=== PATIENT | female | born 1985 | race Caucasian/White ===

== ENCOUNTER 2017-04-07 16:20 | Inpatient (IN) | payer MEDICAID ==
[~2017-04-07] VITALS: Ht 165.1 cm; Wt 74.7 kg
[2017-04-07 16:55] VITALS: Ht 165.1 cm; Wt 74.7 kg
[2017-04-07] MEDS ORDERED: PREN1TAB79 PO (16:55)
[2017-04-07 16:56] VITALS: BP 113/70; PULSE 88; RESP 20
[2017-04-07] MEDS ORDERED: METHYLERGONOVINE 0.2 MG INJ IM PRN ×2 (17:00→21:00)
[2017-04-07] MEDS ORDERED: LACTATED RINGER'S 1,000 ML IV PRN (17:00)
[2017-04-07] MEDS ORDERED: MISOPROSTOL 200 MCG TAB PR PRN ×2 (17:00→21:00)
[2017-04-07] MEDS ORDERED: BUTORPHANOL 2 MG INJ IV PRN ×2 (17:00)
[2017-04-07] MEDS ORDERED: AMPICILLIN 2 GM/NS (PMX) 100 ML IV ONE (17:00)
[2017-04-07] MEDS ORDERED: LIDOCAINE 1% (MPF) 30 ML INJ INJ PRN (17:00)
[2017-04-07] MEDS ORDERED: CARBOPROST 250 MCG INJ IM PRN ×2 (17:00→21:00)
[2017-04-07] MEDS ORDERED: OXYTOCIN 30 UNITS/LR 500 ML IV SCH ×2 (17:00)
[2017-04-07] MEDS ORDERED: OXYTOCIN 30 UNITS/LR 500 ML IV PRN ×2 (17:00→21:00)
--- NOTE | 2017-04-07 17:35 | HP ---
Date/Time of Note Date/Time of Note DATE: 04/07/17 TIME: 17:30 OB - History Hx of Present Free Text/Dictation 31-year-old female 2 para 1 at 38+ weeks gestation admitted complaining of labor pain started at 8:00 AM April 07 Chief Complaint: Labor contractions Last Menstrual Period: Sep 05, 2016 Estimated Due Date: Apr 17, 2017 : 2 Para: 1 Care: Good Care Obstetrical Complications: None Medical Complications: None Past Family/Social History * Past Medical, Surgical, Family and Obstetric Histories reviewed from chart. Blood Type: O+ Rubella: immune RPR/VDRL: Negative GBS Status: Unknown HBsAG: Negative OB Admission Exam Vital Signs Vital Signs Vital Signs Date Time Temp Pulse Resp B/P Pulse Ox O2 Delivery O2 Flow Rate FiO2 04/07/17 16:56 99.3 88 20 113/70 Room Air Physical Exam HEENT: WNL Heart: Rhythm Normal Lungs: Clear, Equal Abdomen: WNL Extremities: Normal Reflexes: Normal Cervical Dilatation: 2cm Effacement: 25% Station: -3 Membranes: Intact Heart Rate: 130's Accelerations: Accelerations Present Decelerations: No Decelerations Varibility: Marked Contractions on Admission: 6-10 Minutes Apart Date/Time Contractions Began: April 07, 2017 at 8:00 AM Frequency of Contractions: Every 5-10 minutes Duration: Over 30 seconds Intensity: Mild OB Assessment/Plan Other Assessment: 38 weeks gestation by unsure dates Labor contractions Plan: Expectant Management Other plan: We will continue to observe Obtain GBS status Obtain estimation of weight BLANCA CARDENAS MD Apr 07, 2017 17:35
[2017-04-07] MEDS: LACTATED RINGER'S 1,000 ML IV SCH (17:36)
[2017-04-07 19:01] LABS: BASOPHILS % 0.2 % (0.0-2.0); EOSINOPHILS # 0.1 10^3/ul (0.0-0.5); EOSINOPHILS % 0.5 % (0.0-7.0); HEMATOCRIT 31.9 % (37.0-47.0); HEMOGLOBIN 10.7 g/dl (12.0-16.0); LYMPHOCYTES # 1.8 10^3/ul (0.8-2.9); LYMPHOCYTES % 19.7 % (15.0-51.0); MEAN CORPUSCULAR HEMOGLOBIN 29.1 pg (29.0-33.0); MEAN CORPUSCULAR HGB CONC 33.5 g/dl (32.0-37.0); MEAN CORPUSCULAR VOLUME 86.7 fl (82.0-101.0); MEAN PLATELET VOLUME 10.1 fl (7.4-10.4); MONOCYTE # 0.6 10^3/ul (0.3-0.9); NEUTROPHIL # 6.6 10^3/ul (1.6-7.5); NEUTROPHILS % 71.9 % (39.0-77.0); PLATELET COUNT 218 10^3/UL (140-415); RED BLOOD COUNT 3.68 10^6/ul (4.20-5.40); WHITE BLOOD COUNT 9.2 10^3/ul (4.8-10.8)
[2017-04-07 19:19] LABS: INR 0.91; PROTIME 12.2 Sec (12.2-14.2)
[2017-04-07 19:20] LABS: PARTIAL THROMBOPLASTIN TIME 27.6 Sec (25.0-35.0)
[2017-04-07 19:31] LABS: BARBITURATES Negative (NEGATIVE); BENZODIAZEPINES Negative (NEGATIVE); CANNABINOIDS Negative (NEGATIVE); COCAINE Negative (NEGATIVE); OPIATES Negative (NEGATIVE)
[2017-04-07] MEDS ORDERED: LACTATED RINGER'S 1,000 ML IV* SCH (20:56)
[2017-04-07] MEDS: OXYTOCIN 30 UNITS/LR 500 ML IV SCH (20:56)
--- NOTE | 2017-04-07 20:56 | LDN ---
Date/Time of Note Date/Time of Note DATE: 04/07/17 TIME: 20:53 Delivery Summary Baby's weight 3100 g / 6 lbs. 13 oz. Weeks of Gestation Term gestation Placenta Delivered: Spontaneously Meconium: none Episiotomy: No Laceration repair: Second-degree laceration repaired with 2-0 Vicryl suture Anesthesia type: Local Estimated blood loss: 200 Sponge & Needle done & correct: Yes All needle counts correct: Yes Any foreign bodies felt in the: No Problems: Delivery Information Sex Infant Sex: female Apgars 1 Minute: 8 5 Minute: 9 Suctioning Nose & mouth suctioned at andriy: Yes Umbilical Cord Umbilical cord with: 3 Vessels Cord presentations: no nuchal cord Cord Blood was obtained: Yes Copies To: CC: BLANCA CARDENAS MD, BAHAREH MD Apr 07, 2017 20:56
[2017-04-07] MEDS ORDERED: ACETAMINOPHEN 325 MG TAB PO PRN ×2 (21:00)
[2017-04-07] MEDS ORDERED: WITCH HAZEL/GLYCERIN PAD PR PRN (21:00)
[2017-04-07] MEDS ORDERED: ONDANSETRON 4 MG INJ IV PRN (21:00)
[2017-04-07] MEDS ORDERED: LANOLIN 7 GM TUBE TOP PRN (21:00)
[2017-04-07] MEDS ORDERED: BENZOCAINE 20% 56 ML SPRAY TOP PRN (21:00)
[2017-04-07] MEDS ORDERED: DIBUCAINE 1% 30 GM OINT PR PRN (21:00)
[2017-04-07] MEDS ORDERED: MAGNESIUM HYDROXIDE 30ML CUP PO PRN (21:00)
[2017-04-07] MEDS: AMPICILLIN 1 GM/NS (PMX) 50 ML IV SCH (21:00)
[2017-04-07] MEDS ORDERED: SENNA/DOCUSATE NA (8.6MG/50MG) TAB PO PRN (21:00)
[2017-04-07] MEDS: IBUPROFEN 600 MG TAB PO PRN (21:07)
[2017-04-07 22:07] LABS: BARBITURATES Negative (NEGATIVE); BENZODIAZEPINES Negative (NEGATIVE); CANNABINOIDS Negative (NEGATIVE); COCAINE Negative (NEGATIVE); OPIATES Negative (NEGATIVE)
[2017-04-07 22:40] VITALS: BP 104/62; PULSE 73; RESP 19
[2017-04-08] MEDS: LACTATED RINGER'S 1,000 ML IV SCH (00:56)
[2017-04-08 01:00] VITALS: BP 101/62; PULSE 73; RESP 18
[2017-04-08] MEDS: AMPICILLIN 1 GM/NS (PMX) 50 ML IV SCH (01:00)
[2017-04-08] MEDS: OXYTOCIN 30 UNITS/LR 500 ML IV SCH (01:12)
[2017-04-08] MEDS ORDERED: ACETAMINOPHEN/CODEINE #3 TAB PO PRN ×2 (02:00→02:30)
[2017-04-08] MEDS: IBUPROFEN 600 MG TAB PO PRN ×3 (02:14→16:38)
[2017-04-08 04:10] VITALS: BP 99/59; PULSE 81; RESP 18
[2017-04-08 08:30] VITALS: BP 92/56; PULSE 69; RESP 16
[2017-04-08 09:00] LABS: BASOPHILS % 0.2 % (0.0-2.0); EOSINOPHILS % 0.4 % (0.0-7.0); LYMPHOCYTES # 1.8 10^3/ul (0.8-2.9); LYMPHOCYTES % 16.4 % (15.0-51.0); MEAN CORPUSCULAR HEMOGLOBIN 28.6 pg (29.0-33.0); MEAN CORPUSCULAR HGB CONC 33.3 g/dl (32.0-37.0); MEAN CORPUSCULAR VOLUME 85.7 fl (82.0-101.0); MEAN PLATELET VOLUME 9.6 fl (7.4-10.4); MONOCYTE # 0.8 10^3/ul (0.3-0.9); MONOCYTES % 7.2 % (0.0-11.0); NEUTROPHILS % 75.1 % (39.0-77.0); PLATELET COUNT 182 10^3/UL (140-415); RED CELL DISTRIBUTION WIDTH 12.9 % (11.5-14.5); WHITE BLOOD COUNT 10.7 10^3/ul (4.8-10.8)
[2017-04-08 12:35] VITALS: BP 102/62; PULSE 69; RESP 16
[2017-04-08 15:40] VITALS: BP 95/57; PULSE 68; RESP 16
[2017-04-08 20:00] VITALS: BP 103/61; PULSE 70; RESP 18
[2017-04-08] MEDS ORDERED: HYDROCODONE/APAP (5/325) TAB PO PRN ×2 (21:41→21:42)
[2017-04-09] MEDS: IBUPROFEN 600 MG TAB PO PRN ×2 (00:01→06:06)
[2017-04-09 04:30] VITALS: BP 95/58; PULSE 66; RESP 18
[2017-04-09 08:45] VITALS: BP 109/56; PULSE 78; RESP 18
--- NOTE | 2017-04-09 10:05 | DS ---
Date/Time of Note Date/Time of Note DATE: 04/09/17 TIME: 10:04 Obstetrical Discharge Record Final Diagnosis Final Diagnosis: Term delivered Vaginal Delivery Obstetrical Delivery: Spontaneous Condition on Discharge Physical Assessment Voiding: Yes Bowel Movement: Yes Breast: Soft, non-tender Fundus: Firm Calf Tenderness: No Patient Condition: Good Copies To: CC: BLANCA CARDENAS MD, BAHAREH MD Apr 09, 2017 10:05
--- NOTE | 2017-04-09 16:12 | PN ---
Date/Time of Note Date/Time of Note Late entry DATE: 04/08/17 Assessment/Plan VTE Prophylaxis VTE Prophylaxis Intervention: ambulation Lines/Catheters IV Catheter Type (from Nrsg): Peripheral IV Assessment/Plan Assessment/Plan Post day 1 Status post vaginal delivery Continue to ambulate Subjective 24 Hr Interval Summary Free Text/Dictation 31-year-old female had vaginal delivery Constitutional: improved, no complaints Eyes: no complaints ENT: no complaints Respiratory: no complaints Cardiovascular: no complaints Gastrointestinal: no complaints Genitourinary: no complaints Musculoskeletal: no complaints Skin: no complaints Neurologic: no complaints Endocrine: no complaints Lymphatic: no complaints Psychological: nl mood/affect, no complaints Immunologic: no complaints Exam/Review of Systems Vital Signs Vitals Vital Signs Date Time Temp Pulse Resp B/P Pulse Ox O2 Delivery O2 Flow Rate FiO2 04/09/17 12:15 Room Air 04/09/17 08:45 98.0 78 18 109/56 Exam Abdomen is soft and fundus is firm Genitourinary - Female: other (Lochia is moderate), uterus (Fundus is firm) Results Result Diagram: 04/08/17 0836 Medications Medications Current Medications Butorphanol Tartrate (Stadol) 1 mg Q2H PRN IV PAIN; Start 04/07/17 at 17:00 Butorphanol Tartrate (Stadol) 2 mg Q2H PRN IV PAIN; Start 04/07/17 at 17:00 Lidocaine (Xylocaine 1% (Mpf)) 30 ml ONCE PRN INJ EPISIOTOMY/TEARING; Start at 17:00 Methylergonovine Maleate (Methergine) 0.2 mg ONCE PRN IM VAGINAL BLEEDING; Start 04/07/17 at 17:00 Carboprost Tromethamine (Hemabate) 250 mcg ONCE PRN IM VAGINAL BLEEDING; Start 04/07/17 at 17:00 Misoprostol (Cytotec) 1,000 mcg ONCE PRN NH VAGINAL BLEEDING; Start 04/07/17 at 17:00 Ondansetron HCl (Zofran Inj) 4 mg Q6H PRN IV NAUSEA AND/OR VOMITING; Start at 21:00 Senna/Docusate Sodium (Senokot-S) 1 tab BID PRN PO CONSTIPATION Last administered on 04/09/17t 09:28; Admin Dose 1 TAB; Start 04/07/17 at 21:00 Magnesium Hydroxide (Milk Of Mag) 30 ml Q12H PRN PO CONSTIPATION; Start at 21:00 Acetaminophen 650 mg 650 mg Q4H PRN PO ELEVATED TEMPERATURE; Start 04/07/17 at 21:00 Oxytocin/Lactated Ringer's 500 ml @ 0 mls/hr ONCE PRN IV For Hemorrhage Management; Start 04/07/17 at 21:00 Methylergonovine Maleate (Methergine) 0.2 mg ONCE PRN IM VAGINAL BLEEDING; Start 04/07/17 at 21:00 Carboprost Tromethamine (Hemabate) 250 mcg ONCE PRN IM VAGINAL BLEEDING; Start 04/07/17 at 21:00 Misoprostol (Cytotec) 1,000 mcg ONCE PRN [place] VAGINAL BLEEDING; Start 04/07/17 at 21:00 Ibuprofen (Motrin) 600 mg Q6H PRN PO PAIN Last administered on 04/09/17t 06:06 ; Admin Dose 600 MG; Start 04/07/17 at 21:00 Acetaminophen/ Hydrocodone Bitart ([place] (5/325)) 1 tab Q4H PRN PO - PRN PAIN LEVEL 1-5; Start 04/08/17 at 21:41 Acetaminophen/ Hydrocodone Bitart ([place] (5/325)) 2 tab Q4H PRN PO - PRN PAIN LEVEL 6-10; Start 04/08/17 at 21:42 BLANCA CARDENAS MD Apr 09, 2017 16:12
== END 2017-04-09 15:45 | disposition home or self-care (01) | DRG 775 ==
LOC: OBT 16:20 → OBG 16:24 → OBT 16:52 → L-D 16:52 → PP1 22:35
PROVIDERS: ADMIT Obstetrics & Gynecology; ATTEND Obstetrics & Gynecology
PROC: 10E0XZZ Delivery of Products of Conception, External Approach (ICD-10-PCS; principal; 2017-04-07)
PROC: 0KQM0ZZ Repair Perineum Muscle, Open Approach (ICD-10-PCS; 2017-04-07)
PROC: 3E033VJ Introduction of Other Hormone into Peripheral Vein, Percutaneous Approach (ICD-10-PCS; 2017-04-07)
DX: O70.1 Second degree perineal laceration during delivery (principal); Z37.0 Single live birth; Z3A.38 38 weeks gestation of pregnancy
CPT/HCPCS: 80307; 85025; 85610; 85730; 86592; 86900; 86901; 87340; 99464; G0463; J0290; J2590; J7120

== ENCOUNTER 2017-11-30 13:34 | Day surgery (SDC) | END 2017-11-30 19:30 | disposition home or self-care (01) ==